=== PATIENT | male | born 1975 | race Caucasian/White ===

== ENCOUNTER → 2018-07-12 | Outpatient (CLI) | payer OTHER ==
--- NOTE | 2018-07-12 12:20 | DIAGNOSTIC IMAGING REPORT ---
ULTRASOUND OF THE ABDOMINAL WALL CLINICAL HISTORY: Umbilical hernia. COMPARISON STUDY: No priors. FINDINGS: Real-time grayscale sonography of the periumbilical soft tissues is performed to assess for the presence of umbilical hernia. There is an umbilical hernia identified, with the reported orifice measuring up to 1 cm. There is a loop of fluid-filled bowel present within the hernia. The hernia was reduced during the examination. IMPRESSION: There is a reducible bowel containing umbilical hernia as above. Electronically signed by: Simon Walton M.D. 07/12/2018 12:19 PM Dictated Date/Time: 07/12/2018 12:14 PM
== END | disposition home or self-care (01) ==
LOC: C.ULTR 10:40
PROVIDERS: ATTEND Family Medicine
DX: K42.9 Umbilical hernia without obstruction or gangrene (principal)